=== PATIENT | male | born 1950 | race Caucasian/White ===

== ENCOUNTER 2018-08-14 09:08 | Outpatient (RCR) | payer MEDICARE | END 2018-08-19 | LOC: OT 09:08 | PROVIDERS: ATTEND Surgery Surgery of the Hand | DX: S66.821A Laceration of other specified muscles, fascia and tendons at wrist and hand level, right hand, initial encounter (principal); M25.641 Stiffness of right hand, not elsewhere classified; M25.441 Effusion, right hand; R53.1 Weakness; R27.9 Unspecified lack of coordination ==

== ENCOUNTER 2018-08-22 13:57 | Outpatient (RCR) | payer MEDICARE | END 2018-09-18 | LOC: OT 13:57 | PROVIDERS: ATTEND Surgery Surgery of the Hand | DX: S66.821A Laceration of other specified muscles, fascia and tendons at wrist and hand level, right hand, initial encounter (principal) | CPT/HCPCS: 97139 ==